=== PATIENT | female | born 1970 ===

== ENCOUNTER 2020-12-24 09:17 | Outpatient (CLI) | payer OTHER ==
[~2020-12-24 09:17] MED LIST: PRENATAL1 TAB
== END 2020-12-24 09:20 | disposition home or self-care (01) ==
LOC: NUCLEAR 09:17
PROVIDERS: ATTEND Internal Medicine
DX: I21.01 ST elevation (STEMI) myocardial infarction involving left main coronary artery (principal)

== ENCOUNTER 2024-09-08 06:34 | Day surgery (SDC) | payer OTHER ==
[2024-09-07 10:11] LABS: HEMATOCRIT 40.6 % (36.0-45.00); HEMOGLOBIN 13.2 g/dL (12.0-15.00); MEAN CELL VOLUME 87.3 fL (80.00-100.00); MEAN CORPUSCULAR HEMOGLOBIN 28.3 pg (27.00-32.0); MEAN CORPUSCULAR HGB CONC 32.4 g/dl (32.0-36.0); PLATELET COUNT 281 K/uL (150-450); RED BLOOD COUNT 4.65 M/uL (4.00-6.00); RED CELL DISTRIBUTION WIDTH 12.8 % (11.5-14.5)
[2024-09-07 10:50] LABS: INR 1.01; PARTIAL THROMBOPLASTIN TIME 27.1 SECONDS (22.0-34.0)
[2024-09-07 10:59] LABS: ALBUMIN 3.9 gm/dL (3.4-5.0); BILIRUBIN TOTAL 0.55 mg/dL (0.3-1.2); CALCIUM 9.1 mg/dL (8.5-10.1); CREATININE SERUM 0.72 mg/dL (0.55-1.02); GFR 84.41; GLOBULINA 3.1 G/DL (2.4-3.5); POTASSIUM 4.3 mEq/L (3.5-5.1)
[2024-09-07 11:07] LABS: PH,URINE 5.5 (5.0-8.0); URINE APPEARANCE Cloudy; URINE BILIRRUBIN Negative (NEGATIVE); URINE BLOOD Negative; URINE COLOR Yellow; URINE GLUCOSE Negative (NEGATIVE); URINE KETONE Negative (NEGATIVE); URINE LEUKOCYTE Trace; URINE NITRATE Negative; URINE PROTEIN Negative (NEGATIVE); URINE UROBILINOGEN 0.2 E.U./dl
[2024-09-07 11:10] LABS: URINE BACTERIA 3536.7 uL (0.0-1933); URINE RBC 32.2 uL (0.0-20.8); URINE WBC 43.4 uL (0.0-23.2)
[2024-09-07 11:42] VITALS: BP 127/84
[~2024-09-08] VITALS: Ht 160 cm; Wt 55.8 kg
[2024-09-08] MEDS ORDERED: CLINDAMYCIN PHOSPHATE 150 MG/ML (900mg) IV ONE (09:00)
[2024-09-08] MEDS ORDERED: CEFAZOLIN SODIUM 1,000 MG VIAL IV ONE (09:00)
[2024-09-08] MEDS ORDERED: GENTAMICIN SULFATE 40 MG/ML VIAL IR ONE (09:00)
[2024-09-08] MEDS ORDERED: BUPIVACAINE HCL/PF 0.25% 30ML VIAL InF ONE (09:00)
[2024-09-08] MEDS ORDERED: POVIDONE-IODINE 118 ML BOTT TOP ONE ×2 (09:00)
[2024-09-08] MEDS ORDERED: NITROGLYCERIN 1 INCH OINT..GM. TD ONE (10:45)
== END 2024-09-08 16:25 | disposition home or self-care (01) ==
LOC: CIR.AMB 06:34
PROVIDERS: ATTEND Surgery
DX: D05.12 Intraductal carcinoma in situ of left breast (principal); D48.61 Neoplasm of uncertain behavior of right breast; N60.81 Other benign mammary dysplasias of right breast; R59.0 Localized enlarged lymph nodes